=== PATIENT | female | born 1995 | race Caucasian/White ===

== ENCOUNTER 2016-09-26 12:29 | Emergency (ER) | payer OTHER ==
[~2016-09-26] VITALS: Ht 167.6 cm; Wt 86.2 kg
[2016-09-26 12:39] VITALS: TEMP 36.7; Ht 167.6 cm; Wt 86.2 kg
[2016-09-26] MEDS ORDERED: PRD20 PO (13:26)
--- NOTE | 2016-09-26 14:03 | DIAGNOSTIC IMAGING REPORT ---
ABDOMEN 2VIEW W/PA CHEST RTN CLINICAL HISTORY: constipation/ abdominal pain COMPARISON STUDY: No previous studies for comparison. FINDINGS: The erect chest reveals no evidence of free air. There is no evidence of focal pulmonary consolidation.] Erect and supine views of the abdomen reveal no abnormally dilated loops of large or small bowel. There are no transition zone to indicate bowel obstruction. There are surgical clips within the right upper quadrant consistent with a prior cholecystectomy. There is a single surgical clip within the right hemipelvis. There is scattered stool present within the colon. There is a mild scoliosis. IMPRESSION: No evidence of bowel obstruction. No evidence of free air. Electronically signed by: Antonio Luong M.D. 09/26/2016 2:00 PM Dictated Date/Time: 09/26/2016 2:00 PM
--- NOTE | 2016-09-26 14:43 | EMERGENCY ROOM VISIT NOTE ---
History First contact with patient: 13:01 Chief Complaint: CONSTIPATION Stated Complaint: CONSTIPATED FOR 3 WEEKS- STOMACH PAIN Nursing Triage Summary: Patient states "I haven't pooped in 3 weeks, I've been to 3 different hospitals". On Prednisone for colitis States one hospital said nothing was wrong. Another told her she was full of stool, but she has had no resulsts with enemas, mag citrate, dulcolax etc. Went back to [facility] and they gave her Prednisone for colitis. States CT scan showed her bowel was empty. Pt c/o bilateral abdominal pain. History of Present Illness The patient is a 21 year old female who presents to the Emergency Room with complaints of constipation for 3 weeks. The patient states that she was seen in other emergency rooms on 3 occasions for her current symptoms. She states that she was in [facility] as well as [facility] for her symptoms. She states that they gave her an enema without any relief. She also drank 2 bottles of mag slight trait and lactulose. She states when she was seen at [facility] on September [address] and told her that she had colitis and placed her on prednisone. The patient states that it seems that her swelling went down in her abdomen but she still has not had a normal bowel movement. She is eating normally. The patient denies any nausea or vomiting. The patient has an appointment with gastroenterology in November. Review of Systems 10 system review was performed and was negative unless stated otherwise history of present illness. Past Medical/Surgical History Cholecystectomy Social History Smoking Status: Current Every Day Smoker Alcohol Use: none Drug Use: none Marital Status: single Housing Status: lives with family Occupation Status: employed Current/Historical Medications Scheduled Prednisone (Prednisone), 40 MG PO DAILY Allergies Coded Allergies: Azithromycin (Unverified Allergy, Unknown, ., 09/26/16) Penicillins (Unverified Allergy, Unknown, ., 09/26/16) Sulfa Antibiotics (Unverified Allergy, Unknown, ., 09/26/16) Sulfamethoxazole w/Trimethoprim (Unverified Allergy, Unknown, ., 09/26/16) Physical Exam Vital Signs Date Time Temp Pulse Resp B/P Pulse Ox O2 Delivery O2 Flow Rate FiO2 09/26/16 14:06 71 16 121/74 97 Room Air 09/26/16 12:39 36.7 91 16 136/83 97 Room Air Physical Exam GENERAL: 21-year-old white female appears in no acute distress. MENTAL Status: Alert and oriented 3. EYES: No icterus noted MOUTH: Mucosa is moist NECK: Supple, no lymphadenopathy noted. No carotid bruits noted. LUNGS: Clear auscultation without wheezes rales or rhonchi. CARDIAC: Regular rate and rhythm without murmur. Pulses is full and equal throughout. BACK: No CVA tenderness noted. ABDOMEN: Positive bowel sounds all 4 quadrants. Patient's abdomen is firm throughout. Nontender to palpation. No rebound or rigidity noted EXTREMITIES: No cyanosis or edema noted. Medical Decision & Procedures ER Provider Diagnostic Interpretation: ABDOMEN 2VIEW W/PA CHEST RTN CLINICAL HISTORY: constipation/ abdominal pain COMPARISON STUDY: No previous studies for comparison. FINDINGS: The erect chest reveals no evidence of free air. There is no evidence of focal pulmonary consolidation.] Erect and supine views of the abdomen reveal no abnormally dilated loops of large or small bowel. There are no transition zone to indicate bowel obstruction. There are surgical clips within the right upper quadrant consistent with a prior cholecystectomy. There is a single surgical clip within the right hemipelvis. There is scattered stool present within the colon. There is a mild scoliosis. IMPRESSION: No evidence of bowel obstruction. No evidence of free air. Electronically signed by: Antonio Luong M.D. 09/26/2016 2:00 PM ED Course The patient was evaluated. I asked the case finishing machine adjuster to obtain the CT results from [facility]. X-ray of the abdomen was ordered and interpreted by the radiologist as above without any acute findings. There was moderate amount of stool within the colon. No fecal impaction noted. I reviewed the CT report from [facility] which revealed no acute process. Likely mild chronic colonic inflammation. The patient was informed of the findings. The patient was discharged home in stable condition. Medical Decision Differential diagnoses include small bowel obstruction, constipation, fecal impaction. Impression Primary Impression: Constipation Departure Information Dispostion Home / Self-Care Condition GOOD Referrals Raisa Parikh PA-C (PCP) Forms HOME CARE DOCUMENTATION FORM, IMPORTANT VISIT INFORMATION Patient Instructions Constipation, My [employer] Additional Instructions Minimize intake of dairy products. High-fiber diet. Makes half a bottle of MiraLAX with 32 ounces of Gatorade- drank In 6 hours repeat process and also take 5 tablets of Ducolax. This should clean out your intestines. After that recommend MiraLAX daily as directed on the label. Keep scheduled appointment with gastroenterology.
[2016-09-26 14:53] VITALS: BP 112/69; PULSE 74; O2SAT 96
== END 2016-09-26 14:54 | disposition home or self-care (01) ==
LOC: C.EDB 12:32 → C.EDC 14:54
DX: K59.00 Constipation, unspecified (principal); F17.200 Nicotine dependence, unspecified, uncomplicated